=== PATIENT | female | born 1995 | race Caucasian/White ===

== ENCOUNTER 2018-10-21 18:06 | Emergency (ER) | payer BC ==
[2018-10-21] MEDS ORDERED: Acetaminophen/oxyCODONE 325-5 MG Tab PO ONE (18:07)
[2018-10-21] MEDS ORDERED: Ketorolac 60 MG/2 ML SDV IM ONE (18:42)
--- NOTE | 2018-10-21 18:48 | EDM.PDOC ---
ED HPI GENERAL MEDICAL PROBLEM - General Chief Complaint: Back Pain or Injury Stated Complaint: HURT BACK Time Seen by Provider: 10/21/18 18:43 Source of Information: Reports: Patient History Limitations: Reports: No Limitations - History of Present Illness INITIAL COMMENTS - FREE TEXT/NARRATIVE: Patient was lifting heavy tote (@50 lb), then fell backwards to the ground. Complains of low back pain that radiates to right hip and upper leg. Denies numbness, tingling or weakness. She did not take any pain medication prior to coming to the ED. 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 Lower back pain radiating down R leg Pain Score (Numeric/FACES): 10 - Related Data Allergies Allergy/AdvReac Type Severity Reaction Status Date / Time cefuroxime Allergy Hives Verified 10/21/18 18:21 cephalexin [Cephalexin] Allergy Hives Verified 10/21/18 18:21 Home Meds: Home Meds Ibuprofen [Motrin] 600 mg PO Q6H PRN #60 tablet 08/02/15 [Rx] DULoxetine HCl [Duloxetine HCl] 20 mg DAILY 10/21/18 [History] Zolpidem Tartrate 5 mg BEDTIME PRN 10/21/18 [History] sulfaSALAzine [sulfaSALAzine DR] 500 mg BID 10/21/18 [History] traMADol [Ultram] 50 mg PO TID 10/21/18 [History] Past Medical History Other HEENT History: wisdom teeth extraction Respiratory History: Reports: Asthma Gastrointestinal History: Reports: Cholelithiasis, Other (See Below) Other Gastrointestinal History: Pt had gallbladder removed earlier this Genitourinary History: Reports: Renal Calculus 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 ED EXAM,LOWER BACK PAIN/INJURY - Physical Exam Exam: See Below Exam Limited By: No Limitations General Appearance: Alert, WD/WN, No Apparent Distress Respiratory/Chest: No Respiratory Distress GI/Abdominal: Soft, Non-Tender, No Distention Back Exam: Vertebral Tenderness (lumbar) Extremities: Other (right hip tenderness) Neurological: Alert, Normal Mood/Affect, No Motor/Sensory Deficits DTR - Lower Extremities: 2+: Knee (R), Knee (L) Psychiatric: Normal Affect, Normal Mood Skin Exam: Warm, Dry Course - Vital Signs Last Recorded V/S: Last Vital Signs Temp 36.7 C 10/21/18 18:17 Pulse 70 10/21/18 18:17 Resp 18 10/21/18 18:17 BP 121/74 10/21/18 18:17 Pulse Ox 100 10/21/18 18:17 - Orders/Labs/Meds Orders: Active Orders 24 hr Category Date Time Status Lumbar Spine wo Cont [CT] Stat Exams 10/21/18 18:42 Taken Pelvis wo Cont [CT] Stat Exams 10/21/18 18:42 Taken Meds: Medications Discontinued Medications Generic Name Dose Route Start Last Admin Trade Name Freq PRN Reason Stop Dose Admin Hydromorphone HCl 1 mg 10/21/18 19:28 10/21/18 19:38 Dilaudid IM 10/21/18 19:29 1 mg ONETIME ONE Administration Ketorolac Tromethamine 60 mg 10/21/18 18:42 10/21/18 19:00 Toradol IM 10/21/18 18:43 60 mg ONETIME ONE Administration Ondansetron HCl 4 mg 10/21/18 19:28 10/21/18 19:38 Zofran IM 10/21/18 19:29 4 mg ONETIME ONE Administration - Radiology Interpretation Free Text/Narrative:: CT Lumbar spine w/o: No acute process. CT Pelvis w/o: No acute process. - Re-Assessments/Exams Free Text/Narrative Re-Assessment/Exam: 10/21/18 19:52 Symptoms improved after Dilaudid 1mg IM (no improvement after Toradol 60mg IM). Departure - Departure Time of Disposition: 19:52 Disposition: Home, Self-Care 01 Condition: Good Clinical Impression: Sciatica Qualifiers: Laterality: right Qualified Code(s): M54.31 - Sciatica, right side - Discharge Information *PRESCRIPTION DRUG MONITORING PROGRAM REVIEWED*: Yes *COPY OF PRESCRIPTION DRUG MONITORING REPORT IN PATIENT DEBBY: No Instructions: Sciatica, Crutch Use, Adult, [id number] Referrals: PCP,None [Primary Care Provider] - Forms: ED Department Discharge, ED Return to Work/School Form Additional Instructions: Take Percocet as directed. You may take Ibuprofen with this, but do not take the Tramadol while taking Percocet. Follow up with your doctor in 2 days. Return to the ER if symptoms worsen. - My Orders Last 24 Hours: My Active Orders 10/21/18 18:42 Lumbar Spine wo Cont [CT] Stat Pelvis wo Cont [CT] Stat - Assessment/Plan Last 24 Hours: My Active Orders 10/21/18 18:42 Lumbar Spine wo Cont [CT] Stat Pelvis wo Cont [CT] Stat
[2018-10-21] MEDS ORDERED: Ondansetron 4 MG/2 ML SDV IM ONE (19:28)
[2018-10-21] MEDS ORDERED: HYDROmorphone 2 MG/ML SDV IM ONE (19:28)
[2018-10-21 20:20] VITALS: BP 121/83
== END 2018-10-21 20:14 | disposition home or self-care (01) ==
LOC: FB.ED 18:06
DX: M54.31 Sciatica, right side (principal); J45.909 Unspecified asthma, uncomplicated; F41.9 Anxiety disorder, unspecified; F32.9 Major depressive disorder, single episode, unspecified; Z88.1 Allergy status to other antibiotic agents; Z79.899 Other long term (current) drug therapy
CPT/HCPCS: 72131; 72192; 96372; 99284-25; A9270-GY; J1170; J1885; J2405

== ENCOUNTER 2019-02-04 18:41 | Emergency (ER) | payer BC, MEDICAID ==
[2019-02-04 18:55] VITALS: BP 122/76; PULSE 90
[2019-02-04] MEDS ORDERED: Sodium Chloride 0.9% 10 ML Syringe FLUSH PRN (19:07)
[2019-02-04] MEDS ORDERED: Ondansetron 4 MG/2 ML SDV IVPUSH ONE (19:07)
[2019-02-04] MEDS ORDERED: HYDROmorphone 2 MG/ML SDV IVPUSH ONE (19:07)
--- NOTE | 2019-02-04 19:12 | EDM.PDOC ---
ED HPI GENERAL MEDICAL PROBLEM - General Chief Complaint: Headache Stated Complaint: MAIGRAINE Time Seen by Provider: 02/04/19 19:08 Source of Information: Reports: Patient History Limitations: Reports: No Limitations - History of Present Illness INITIAL COMMENTS - FREE TEXT/NARRATIVE: Headache x 10 days. Characteristic of migraine she has had before. Severe. Associated with nausea/vomiting. She also endorses anxiety,back pain, chronic.Tried Imitrex with no relief.She was in the clinic today,got Ketoralac and Zofran IM with no relief. Migraine Pain Score (Numeric/FACES): 9 - Related Data Allergies Allergy/AdvReac Type Severity Reaction Status Date / Time cefuroxime Allergy Hives Verified 02/04/19 18:50 cephalexin [Cephalexin] Allergy Hives Verified 02/04/19 18:50 Home Meds: Home Meds Ibuprofen [Motrin] 600 mg PO Q6H PRN #60 tablet 08/02/15 [Rx] DULoxetine HCl [Duloxetine HCl] 20 mg PO DAILY 10/21/18 [History] Zolpidem Tartrate 5 mg PO BEDTIME PRN 10/21/18 [History] sulfaSALAzine [sulfaSALAzine DR] 500 mg PO BID 10/21/18 [History] traMADol [Ultram] 50 mg PO TID PRN 10/21/18 [History] Baclofen 5 mg PO TID 02/04/19 [History] Gabapentin [Neurontin] 100 mg PO TID 02/04/19 [History] Gabapentin [Neurontin] 600 mg PO TID 02/04/19 [History] Past Medical History Other HEENT History: wisdom teeth extraction Respiratory History: Reports: Asthma Gastrointestinal History: Reports: Cholelithiasis, Other (See Below) Other Gastrointestinal History: Pt had gallbladder removed earlier this Genitourinary History: Reports: 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: Musculoskeletal History: Reports: Back Pain, Chronic, RA Other Musculoskeletal History: hx bulging discs L4&5-S1 Neurological History: Reports: Migraines Psychiatric History: Reports: Anxiety, Depression - Infectious Disease History Infectious Disease History: Reports: Chicken Pox - Past Surgical History HEENT Surgical History: Reports: Oral Surgery Social & Family History - Family History Family Medical History: Noncontributory OBGYN: Reports: Psychiatric: Reports: Anxiety, Depression - Tobacco Use Smoking Status *Q: Current Every Day Smoker Years of Tobacco use: 8 Packs/Tins Daily: 0.4 - Caffeine Use Caffeine Use: Reports: Soda - Recreational Drug Use Recreational Drug Use: No ED ROS GENERAL - Review of Systems Review Of Systems: ROS reveals no pertinent complaints other than HPI. - Physical Exam Exam: See Below Exam Limited By: Other (In a dark room) General Appearance: Alert, Other ([id number]) Ears: Normal External Exam Nose: Normal Inspection Throat/Mouth: Normal Inspection Head Exam: Atraumatic, Normocephalic Psychiatric: Tearful Skin Exam: Warm Course - Vital Signs Last Recorded V/S: Last Vital Signs Temp 98.2 F 02/04/19 18:50 Pulse 90 02/04/19 18:50 Resp 18 02/04/19 18:50 BP 122/76 02/04/19 18:50 Pulse Ox 98 02/04/19 18:50 - Orders/Labs/Meds Orders: Active Orders 24 hr Category Date Time Status Peripheral IV Insertion Adult [OM.PC] Routine Oth 02/04/19 19:07 Ordered Meds: Medications Discontinued Medications Generic Name Dose Route Start Last Admin Trade Name Freq PRN Reason Stop Dose Admin Hydromorphone HCl 1 mg 02/04/19 19:07 02/04/19 19:20 Dilaudid IVPUSH 02/04/19 19:08 1 mg ONETIME ONE Administration Sodium Chloride 1,000 mls @ 999 mls/hr 02/04/19 19:15 02/04/19 19:10 Normal Saline IV 999 mls/hr ASDIRECTED KIMANI Administration Ondansetron HCl 8 mg 02/04/19 19:07 02/04/19 19:20 Zofran IVPUSH 02/04/19 19:08 8 mg ONETIME ONE Administration Sodium Chloride 10 ml 02/04/19 19:07 Saline Flush FLUSH ASDIRECTED PRN Keep Vein Open Departure - Departure Time of Disposition: 20:00 Disposition: Home, Self-Care 01 Condition: Good Clinical Impression: Migraine - Discharge Information Referrals: Diallo Paul MD [Primary Care Provider] - Forms: ED Department Discharge - Problem List & Annotations (1) Migraine SNOMED Code(s): 39960853 Code(s): G43.909 - MIGRAINE, UNSP, NOT INTRACTABLE, WITHOUT STATUS MIGRAINOSUS Status: Acute - Problem List Review Problem List Initiated/Reviewed/Updated: Yes - My Orders Last 24 Hours: My Active Orders 02/04/19 19:07 Peripheral IV Insertion Adult [OM.PC] Routine - Assessment/Plan Last 24 Hours: My Active Orders 02/04/19 19:07 Peripheral IV Insertion Adult [OM.PC] Routine Plan: 1 L NS,IV zofran and Dilaudid.
[2019-02-04] MEDS ORDERED: Sodium Chloride 0.9% 1,000 ML IV SCH (19:15)
== END 2019-02-04 20:15 | disposition home or self-care (01) ==
LOC: FB.ED 18:41
DX: G43.909 Migraine, unspecified, not intractable, without status migrainosus (principal); F41.9 Anxiety disorder, unspecified; F32.9 Major depressive disorder, single episode, unspecified; F17.210 Nicotine dependence, cigarettes, uncomplicated; Z79.899 Other long term (current) drug therapy; Z88.1 Allergy status to other antibiotic agents; Z88.8 Allergy status to other drugs, medicaments and biological substances
CPT/HCPCS: 96361; 96374; 96375; 99283; J1170; J2405; J7030

== ENCOUNTER 2019-05-08 11:01 | Emergency (ER) | payer OTHER, BC, MEDICAID ==
[2019-05-08 11:14] VITALS: BP 143/98; PULSE 87
[2019-05-08] MEDS ORDERED: HYDROmorphone 2 MG/ML SDV IVPUSH ONE (11:16)
--- NOTE | 2019-05-08 11:17 | EDM.PDOC ---
ED HPI GENERAL MEDICAL PROBLEM - General Stated Complaint: FALL Time Seen by Provider: 05/08/19 11:11 Source of Information: Reports: Patient History Limitations: Reports: No Limitations - History of Present Illness INITIAL COMMENTS - FREE TEXT/NARRATIVE: pt comes by EMS shortly after accidental fall off a chair while at work, c/o sever pain at right buttocks and right wrist , denies any other injuries or any other medical concerns. report Hx of chronic low back pain , she is on gabapentin and muscle relaxants . was given 100mcg fentanyl by EMS and still in tears c/o sever pain. lower back Pain Score (Numeric/FACES): 10 right wrist Pain Score (Numeric/FACES): 10 - Related Data Allergies Allergy/AdvReac Type Severity Reaction Status Date / Time cefuroxime Allergy Hives Verified 05/08/19 11:13 cephalexin [Cephalexin] Allergy Hives Verified 05/08/19 11:13 Home Meds: Home Meds Ibuprofen [Motrin] 600 mg PO Q6H PRN #60 tablet 08/02/15 [Rx] sulfaSALAzine [sulfaSALAzine DR] 1,000 mg PO BEDTIME 10/21/18 [History] traMADol [Ultram] 50 mg PO TID PRN 10/21/18 [History] Baclofen 5 mg PO TID 02/04/19 [History] Gabapentin [Neurontin] 900 mg PO TID 02/04/19 [History] Escitalopram Oxalate 10 mg PO DAILY 05/08/19 [History] Hydroxychloroquine Sulfate 200 mg PO BID 05/08/19 [History] sulfaSALAzine [sulfaSALAzine DR] 500 mg PO DAILY 05/08/19 [History] Past Medical History Other HEENT History: wisdom teeth extraction Respiratory History: Reports: Asthma Gastrointestinal History: Reports: Cholelithiasis, Other (See Below) Other Gastrointestinal History: Pt had gallbladder removed earlier this Genitourinary History: Reports: Renal Calculus 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: Musculoskeletal History: Reports: Back Pain, Chronic, RA Other Musculoskeletal History: hx bulging discs L4&5-S1 Neurological History: Reports: Migraines Psychiatric History: Reports: Anxiety, Depression - Infectious Disease History Infectious Disease History: Reports: Chicken Pox - Past Surgical History HEENT Surgical History: Reports: Oral Surgery Social & Family History - Family History Family Medical History: Noncontributory OBGYN: Reports: Psychiatric: Reports: Anxiety, Depression - Caffeine Use Caffeine Use: Reports: Soda ED ROS GENERAL - Review of Systems Review Of Systems: See Below Constitutional: Reports: No Symptoms Respiratory: Reports: No Symptoms Cardiovascular: Reports: No Symptoms GI/Abdominal: Reports: No Symptoms Musculoskeletal: Denies: Neck Pain, Shoulder Pain, Leg Pain Skin: Reports: No Symptoms ED EXAM, GENERAL - Physical Exam Exam: See Below Exam Limited By: No Limitations General Appearance: Alert, Moderate Distress, Severe Distress Eye Exam: Bilateral Eye: Normal Inspection, PERRL Nose: Normal Inspection Throat/Mouth: Normal Inspection, Normal Oropharynx Head: Atraumatic, Normocephalic Neck: Normal Inspection, Supple, Non-Tender, Full Range of Motion Respiratory/Chest: No Respiratory Distress, Lungs Clear, Normal Breath Sounds Cardiovascular: Normal Peripheral Pulses, Regular Rate, Rhythm, No Murmur GI/Abdominal: Normal Bowel Sounds, Soft, Non-Tender Back Exam: Normal Inspection, Full Range of Motion, Other (pt is tender over the right buttocks area, no bruising or soft tissue swelling, no tenderness over spine. also tender over the right wrist , swelling noted over the radial side. rest of RUE exam is nl. ). No: CVA Tenderness (L) Neurological: Alert, Oriented, CN II-XII Intact, Normal Gait, Normal Reflexes, No Motor/Sensory Deficits Course - Vital Signs Text/Narrative:: xray shows no acute findings / official report is still pending. pt was given dilaudid IM on arrival. supportive mng for contusion injury to buttocks and right wrist was recommended , pt was given 15 tablets on hydrocodone to use only for sever pain. Last Recorded V/S: Last Vital Signs Temp 36.7 C 05/08/19 11:10 Pulse 87 05/08/19 11:10 Resp 17 05/08/19 11:10 BP 143/98 H 05/08/19 11:10 Pulse Ox 100 05/08/19 11:10 - Orders/Labs/Meds Orders: Active Orders 24 hr Category Date Time Status Wrist Comp Min 3V Rt [CR] Stat Exams 05/08/19 11:17 Taken Meds: Medications Discontinued Medications Generic Name Dose Route Start Last Admin Trade Name Freq PRN Reason Stop Dose Admin Hydromorphone HCl 1 mg 05/08/19 11:16 05/08/19 11:21 Dilaudid IVPUSH 05/08/19 11:17 1 mg ONETIME ONE Administration Departure - Departure Time of Disposition: 11:50 Disposition: Home, Self-Care 01 Clinical Impression: Contusion of wrist, right - Discharge Information Referrals: Diallo Paul MD [Primary Care Provider] - Sepsis Event Note - Focused Exam Vital Signs: Vital Signs Temp Pulse Resp BP Pulse Ox 05/08/19 11:10 36.7 C 87 17 143/98 H 100 Date Exam was Performed: 05/08/19 Time Exam was Performed: 11:48 - My Orders Last 24 Hours: My Active Orders 05/08/19 11:17 Wrist Comp Min 3V Rt [CR] Stat - Assessment/Plan Last 24 Hours: My Active Orders 05/08/19 11:17 Wrist Comp Min 3V Rt [CR] Stat
[2019-05-08] MEDS ORDERED: Ketorolac 30 MG/ML SDV IVPUSH ONE (12:15)
--- NOTE | 2019-05-10 14:38 | CR ---
INDICATION: Wrist pain. RIGHT WRIST: Three views of the right wrist revealed no evidence of a fracture , dislocation or other definite bone or joint abnormality. If an occult fracture site is suspected clinically, reexamination in 10-14 days may be helpful. MTDD
== END 2019-05-08 12:43 | disposition home or self-care (01) ==
LOC: FB.ED 11:01
DX: S60.211A Contusion of right wrist, initial encounter (principal); J45.909 Unspecified asthma, uncomplicated; F41.9 Anxiety disorder, unspecified; F32.9 Major depressive disorder, single episode, unspecified; Z79.899 Other long term (current) drug therapy; Z88.1 Allergy status to other antibiotic agents; W07.XXXA Fall from chair, initial encounter; Y99.0 Civilian activity done for income or pay
CPT/HCPCS: 73110-RT; 96374; 96375; 99283-25; J1170; J1885

== ENCOUNTER 2019-08-23 14:02 | Emergency (ER) | payer BC, MEDICAID ==
[2019-08-23] MEDS ORDERED: Potassium Chloride 10 MEQ Tab.ER PO ONE (14:03)
[2019-08-23] MEDS ORDERED: Ondansetron 4 MG Tab.DIS PO ONE (14:03)
--- NOTE | 2019-08-23 14:34 | EDM.PDOC ---
ED HPI GENERAL MEDICAL PROBLEM - General Chief Complaint: Gastrointestinal Problem Stated Complaint: VERY DEHYDRATED Time Seen by Provider: 08/23/19 14:20 Source of Information: Reports: Patient, Old Records History Limitations: Reports: No Limitations - History of Present Illness INITIAL COMMENTS - FREE TEXT/NARRATIVE: Laura comes into [facility] ED with a 13 hr hx of nausea, vomiting, and diarrhea. She has been ill for 5 days with Infl. B, and did take most of the Tamiflu 75 mg tabs until recently. Emesis is caldera in color, and diarrhea is watery without blood or mucous. She feels weak, tired, afebrile, and anorectic. She is on DepoProvera IM for control. - Related Data Allergies Allergy/AdvReac Type Severity Reaction Status Date / Time cefuroxime Allergy Hives Verified 08/23/19 14:21 cephalexin [Cephalexin] Allergy Hives Verified 08/23/19 14:21 Home Meds: Home Meds Ibuprofen [Motrin] 600 mg PO Q6H PRN #60 tablet 08/02/15 [Rx] sulfaSALAzine [sulfaSALAzine DR] 1,000 mg PO BEDTIME 10/21/18 [History] traMADol [Ultram] 50 mg PO TID PRN 10/21/18 [History] Baclofen 5 mg PO TID 02/04/19 [History] Gabapentin [Neurontin] 900 mg PO TID 02/04/19 [History] Escitalopram Oxalate 10 mg PO DAILY 05/08/19 [History] Hydrocodone/Acetaminophen [Hydrocodon-Acetaminophen 5-325] 1 - 2 each PO Q6H PRN #15 tablet 05/08/19 [Rx] Hydroxychloroquine Sulfate 200 mg PO BID 05/08/19 [History] sulfaSALAzine [sulfaSALAzine DR] 500 mg PO DAILY 05/08/19 [History] Past Medical History Other HEENT History: wisdom teeth extraction Respiratory History: Reports: Asthma Gastrointestinal History: Reports: Cholelithiasis, Other (See Below) Other Gastrointestinal History: Pt had gallbladder removed earlier this Genitourinary History: Reports: 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: Musculoskeletal History: Reports: Back Pain, Chronic, RA Other Musculoskeletal History: hx bulging discs L4&5-S1 Neurological History: Reports: Migraines Psychiatric History: Reports: Anxiety, Depression - Infectious Disease History Infectious Disease History: Reports: Chicken Pox - Past Surgical History HEENT Surgical History: Reports: Oral Surgery Social & Family History - Family History Family Medical History: Noncontributory OBGYN: Reports: Psychiatric: Reports: Anxiety, Depression - Caffeine Use Caffeine Use: Reports: Soda ED ROS GENERAL - Review of Systems Review Of Systems: Comprehensive ROS is negative, except as noted in HPI. ED EXAM, GI/ABD - Physical Exam Exam: See Below Exam Limited By: No Limitations General Appearance: Alert, WD/WN, Mild Distress Eyes: Bilateral: Normal Appearance, EOMI Ears: Normal External Exam Nose: Normal Inspection Throat/Mouth: Normal Inspection, Normal Lips, Normal Oropharynx, Normal Voice, No Airway Compromise Head: Normocephalic Neck: Normal Inspection, Supple, Non-Tender Respiratory/Chest: No Respiratory Distress, Lungs Clear, Normal Breath Sounds, No Accessory Muscle Use, Chest Non-Tender Cardiovascular: Regular Rate, Rhythm, No Edema, No Gallop, No Murmur GI/Abdominal Exam: Normal Bowel Sounds, Soft, Non-Tender, No Organomegaly, No Distention, No Mass (Female) Exam: Deferred Rectal (Female) Exam: Deferred Back Exam: Normal Inspection, Full Range of Motion Extremities: Normal Inspection Neurological: Alert, Oriented, CN II-XII Intact, Normal Cognition, No Motor/ Sensory Deficits Psychiatric: Normal Affect, Normal Mood Skin Exam: Warm, Dry, Intact, Normal Color, No Rash Lymphatic: No Adenopathy Course - Vital Signs Text/Narrative:: Following assessment, I started an IV in the RUE, and administered 2L of D5LR, 20 meq KCl, Protonix 40 mg IV, Zofran 8 mg IV, and Phenergan 25 mg before discharge. There was 1 episode of emesis, but nausea had improved at time of discharge. Screening labs noted K 3.1 meq/l, other labs satisfactory for age. Last Recorded V/S: Last Vital Signs Temp 36.7 C 08/23/19 18:30 Pulse 109 H 08/23/19 18:30 Resp 17 08/23/19 18:30 BP 135/75 08/23/19 18:30 Pulse Ox 100 08/23/19 18:30 - Orders/Labs/Meds Orders: Active Orders 24 hr Category Date Time Status Peripheral IV Insertion Adult [OM.PC] Routine Oth 08/23/19 14:28 Ordered Labs: Laboratory Tests 08/23/19 08/23/19 08/23/19 Range/Units 14:35 14:35 16:30 WBC 3.6 L (4.5-12.0) X10-3/uL RBC 4.13 (3.23-5.20) x10(6)uL Hgb 12.9 (11.5-15.5) g/dL Hct 39.0 (30.0-51.3) % MCV 94.3 (80-96) fL MCH 31.3 (27.7-33.6) pg MCHC 33.2 (32.2-35.4) g/dL RDW 10.9 L (11.5-15.5) % Plt Count 224 (125-369) X10(3)uL MPV 7.8 (7.4-10.4) fL Neut % (Auto) 44.6 L (46-82) % Lymph % (Auto) 42.8 H (13-37) % [place] % (Auto) 10.3 (4-12) % Eos % (Auto) 1 (1.0-5.0) % Baso % (Auto) 1 (0-2) % Neut # (Auto) 1.6 (1.6-8.3) # Lymph # (Auto) 1.5 (0.6-5.0) # [place] # (Auto) 0.4 (0.0-1.3) # Eos # (Auto) 0.0 (0.0-0.8) # Baso # (Auto) 0.0 (0.0-0.2) # Sodium 143 (135-145) mmol/L Potassium 3.1 L (3.5-5.3) mmol/L Chloride 104 (100-110) mmol/L Carbon Dioxide 25 (21-32) mmol/L BUN 8 (7-18) mg/dL Creatinine 0.8 (0.55-1.02) mg/dL Est Cr Clr Drug Dosing 81.82 mL/min Estimated GFR (MDRD) > 60 (>60) BUN/Creatinine Ratio 10.0 (9-20) Glucose 84 (80-116) mg/dL Calcium 8.8 (8.6-10.2) mg/dL Urine Color Yellow (YELLOW) Urine Appearance Clear (CLEAR) Urine pH 7.0 H (5.0-6.5) Ur Specific [place] 1.000 L (1.010-1.025) Urine Protein Negative (NEGATIVE) mg/dL Urine Glucose (UA) >1000 H (NORMAL) mg/dL Urine Ketones Negative (NEGATIVE) mg/dL Urine Occult Blood Negative (NEGATIVE) Urine Nitrite Negative (NEGATIVE) Urine Bilirubin Negative (NEGATIVE) Urine Urobilinogen Normal (NEGATIVE) mg/dL Ur Leukocyte Esterase Negative (NEGATIVE) Urine RBC 0-5 (0-5) Urine WBC 0-5 (0-5) Ur Squamous Epith Cells Rare (NS,R,O) Urine Bacteria Few H (NS) Meds: Medications Discontinued Medications Generic Name Dose Route Start Last Admin Trade Name Freq PRN Reason Stop Dose Admin Dextrose/Lactated Ringer's 2,000 mls @ 999 mls/hr 08/23/19 14:30 08/23/19 15: 03 Dextrose 5%-Lactated Ringers IV 999 mls/hr ASDIRECTED KIMANI Administration Potassium Chloride 20 meq/ 100 mls @ 50 mls/hr 08/23/19 15:54 08/23/19 16:07 Premix IV 08/23/19 17:53 50 mls/hr ONETIME ONE Administration Promethazine HCl 25 mg/ Sodium 51 mls @ 200 mls/hr 08/23/19 16:27 08/23/19 16 :33 Chloride IV 08/23/19 16:42 200 mls/hr ONETIME ONE Administration Ondansetron HCl 8 mg 08/23/19 14:29 08/23/19 14:55 Zofran IVPUSH 08/23/19 14:30 8 mg ONETIME ONE Administration Pantoprazole Sodium 40 mg 08/23/19 16:21 08/23/19 16:36 Protonix Iv IVPUSH 08/23/19 16:22 40 mg ONETIME ONE Administration Promethazine HCl 50 mg 08/23/19 16:22 08/23/19 16:28 Phenergan IM 08/23/19 16:23 Not Given ONETIME ONE Sodium Chloride 10 ml 08/23/19 14:28 08/23/19 14:50 Saline Flush FLUSH 10 ml ASDIRECTED PRN Administration Keep Vein Open Departure - Departure Time of Disposition: 18:40 Disposition: Home, Self-Care 01 Condition: Fair Clinical Impression: Gastroenteritis - Discharge Information *PRESCRIPTION DRUG MONITORING PROGRAM REVIEWED*: Not Applicable *COPY OF PRESCRIPTION DRUG MONITORING REPORT IN PATIENT DEBBY: Not Applicable Instructions: Viral Gastroenteritis, Adult, [id number] Referrals: Diallo Paul MD [Primary Care Provider] - Forms: ED Department Discharge Additional Instructions: clear liquid diet and advanced as tolerated rest drink enough water please take zofran 4mg 1 tab odt every 8hours as needed and take potassium 10meq 1 tab three times a day until it is gone. if diarrhea persist, you may take Imodium over the counter medication follow up with your primary care as needed Sepsis Event Note - Focused Exam Vital Signs: Vital Signs Temp Pulse Resp BP Pulse Ox 08/23/19 18:30 36.7 C 109 H 17 135/75 100 08/23/19 14:06 36.8 C 79 18 104/83 100 Date Exam was Performed: 08/23/19 Time Exam was Performed: 19:01 - Problem List & Annotations (1) Gastroenteritis SNOMED Code(s): 57813807 Code(s): K52.9 - NONINFECTIVE GASTROENTERITIS AND COLITIS, UNSPECIFIED Status: Acute Annotation/Comment:: I dispensed Zofran 4 mg ODT, KCl 10 meq tab tid til gone, clear liquids, and rest. She may discontinue remaining Tamiflu tabs. She may pruchase OTC Imodium tabs for diarrhea prn. - Problem List Review Problem List Initiated/Reviewed/Updated: Yes - My Orders Last 24 Hours: My Active Orders 08/23/19 14:28 Peripheral IV Insertion Adult [OM.PC] Routine - Assessment/Plan Last 24 Hours: My Active Orders 08/23/19 14:28 Peripheral IV Insertion Adult [OM.PC] Routine Plan: Follow up if needed with PCP.
[2019-08-23] MEDS: Sodium Chloride 0.9% 10 ML Syringe FLUSH PRN (14:50)
[2019-08-23] MEDS: Ondansetron 4 MG/2 ML SDV IVPUSH ONE (14:55)
[2019-08-23] MEDS: Potassium Chloride 20 MEQ in Premix Bag 1 BAG IV ONE (16:07)
[2019-08-23] MEDS: Promethazine 25 MG/ML SDV IM ONE (16:28)
[2019-08-23] MEDS: Promethazine 25 MG in Sodium Chloride 0.9% 50 ML IV ONE (16:33)
[2019-08-23] MEDS: Pantoprazole 40 MG Vial IVPUSH ONE (16:36)
[2019-08-23 18:43] VITALS: BP 135/75; PULSE 109
== END 2019-08-23 18:36 | disposition home or self-care (01) ==
LOC: FB.ED 14:02
DX: K52.9 Noninfective gastroenteritis and colitis, unspecified (principal); J45.909 Unspecified asthma, uncomplicated; Z88.1 Allergy status to other antibiotic agents
CPT/HCPCS: 36415; 80048; 81001; 85025; 96361; 96365; 96366; 96375; 99284; A9270; C9113; J2405; J2550; J3480; J7050; J7121

== ENCOUNTER 2019-11-01 23:01 | Emergency (ER) | payer BC, MEDICAID ==
[2019-11-01] MEDS ORDERED: Ondansetron 4 MG Tab.DIS PO ONE ×2 (23:02→23:12)
[2019-11-01] MEDS ORDERED: Sodium Chloride 0.9% 10 ML Syringe FLUSH PRN (23:28)
[2019-11-01] MEDS ORDERED: Morphine 2 MG/ML Syringe IVPUSH ONE (23:29)
[2019-11-01] MEDS ORDERED: Ketorolac 30 MG/ML SDV IVPUSH ONE (23:29)
[2019-11-01 23:38] VITALS: BP 127/65; PULSE 104
[2019-11-01] MEDS ORDERED: Sodium Chloride 0.9% 1,000 ML IV SCH (23:45)
--- NOTE | 2019-11-02 01:02 | EDM.PDOC ---
ED HPI GENERAL MEDICAL PROBLEM - General Chief Complaint: Abdominal Pain Stated Complaint: STOMACH PAIN Time Seen by Provider: 11/01/19 23:05 Source of Information: Reports: Patient History Limitations: Reports: No Limitations - History of Present Illness INITIAL COMMENTS - FREE TEXT/NARRATIVE: Patient presented to the ED because of N/V/D x 1 day. She also c/o cramping abdominal pain. The pain is 10/10 over the epigastric area. There is no associated fever or chills or urinary symptoms. mid lower abdominal pain Pain Score (Numeric/FACES): 9 - Related Data Allergies Allergy/AdvReac Type Severity Reaction Status Date / Time cefuroxime Allergy Hives Verified 08/23/19 14:21 cephalexin [Cephalexin] Allergy Hives Verified 08/23/19 14:21 Home Meds: Home Meds Ibuprofen [Motrin] 600 mg PO Q6H PRN #60 tablet 08/02/15 [Rx] sulfaSALAzine [sulfaSALAzine DR] 1,000 mg PO BEDTIME 10/21/18 [History] traMADol [Ultram] 50 mg PO TID PRN 10/21/18 [History] Baclofen 20 mg PO TID 02/04/19 [History] Gabapentin [Neurontin] 900 mg PO TID 02/04/19 [History] Escitalopram Oxalate 20 mg PO DAILY 05/08/19 [History] Hydroxychloroquine Sulfate 200 mg PO BID 05/08/19 [History] sulfaSALAzine [sulfaSALAzine DR] 500 mg PO DAILY 05/08/19 [History] Albuterol Sulfate [Albuterol Sulfate Hfa] 2 puff IH Q4HR PRN 11/01/19 [History] ClonazePAM [KlonoPIN] 0.5 mg PO BEDTIME 11/01/19 [History] Ondansetron [Zofran ODT] 4 mg PO Q6H PRN 11/01/19 [History] SUMAtriptan 100 mg PO Q2H PRN 11/01/19 [History] Past Medical History Other HEENT History: wisdom teeth extraction Respiratory History: Reports: Asthma Gastrointestinal History: Reports: Cholelithiasis, Other (See Below) Other Gastrointestinal History: Pt had gallbladder removed earlier this Genitourinary History: Reports: Renal Calculus [employer] History: Reports: Musculoskeletal History: Reports: Back Pain, Chronic, RA Other Musculoskeletal History: hx bulging discs L4&5-S1 Neurological History: Reports: Migraines Psychiatric History: Reports: Anxiety, Depression Other Psychiatric History: controlled, see's PCP for this - Infectious Disease History Infectious Disease History: Reports: Chicken Pox - Past Surgical History HEENT Surgical History: Reports: Oral Surgery Social & Family History - Family History Family Medical History: Noncontributory OBGYN: Reports: Psychiatric: Reports: Anxiety, Depression - Tobacco Use Smoking Status *Q: Current Every Day Smoker Years of Tobacco use: 8 Packs/Tins Daily: 0.5 - Caffeine Use Caffeine Use: Reports: Soda Caffeine Use Comment: one per day - Recreational Drug Use Recreational Drug Use: No ED ROS GENERAL - Review of Systems Review Of Systems: See Below Constitutional: Reports: No Symptoms HEENT: Reports: No Symptoms Respiratory: Reports: No Symptoms Cardiovascular: Reports: No Symptoms Endocrine: Reports: No Symptoms GI/Abdominal: Reports: Abdominal Pain, Diarrhea, Nausea, Vomiting : Reports: No Symptoms Musculoskeletal: Reports: No Symptoms Skin: Reports: No Symptoms ED EXAM, GI/ABD - Physical Exam Exam: See Below Exam Limited By: No Limitations General Appearance: Alert, No Apparent Distress Ears: Normal External Exam, Normal Canal Nose: Normal Inspection, Normal Mucosa Throat/Mouth: Normal Inspection, Normal Lips Head: Atraumatic, Normocephalic, Facial Swelling Neck: Normal Inspection, Supple, Non-Tender Respiratory/Chest: No Respiratory Distress, Lungs Clear, Normal Breath Sounds Cardiovascular: Normal Peripheral Pulses, Regular Rate, Rhythm, No Edema, No Gallop, No JVD GI/Abdominal Exam: Normal Bowel Sounds, Soft, Other (epigastric tentenderness) Back Exam: Normal Inspection, Full Range of Motion Extremities: Normal Inspection, Normal Range of Motion, Non-Tender Course - Vital Signs Text/Narrative:: Labs reviewed with patient and verbalized full understanding NS 1 L bolus Zofran 4 mg IV x2 dose Toradol 30 mg IV x1 Last Recorded V/S: Last Vital Signs Temp 36.7 C 11/01/19 23:02 Pulse 104 H 11/01/19 23:02 Resp 17 11/01/19 23:02 BP 127/65 11/01/19 23:02 Pulse Ox 98 11/01/19 23:02 - Orders/Labs/Meds Orders: Active Orders 24 hr Category Date Time Status Saline Lock Insert [OM.PC] Routine Oth 11/01/19 23:28 Ordered Labs: Laboratory Tests 11/01/19 11/01/19 Range/Units 23:38 23:38 WBC 8.6 (4.5-12.0) X10-3/uL RBC 4.10 (3.23-5.20) x10(6)uL Hgb 12.3 (11.5-15.5) g/dL Hct 38.2 (30.0-51.3) % MCV 93.1 (80-96) fL MCH 30.1 (27.7-33.6) pg MCHC 32.3 (32.2-35.4) g/dL RDW 11.9 (11.5-15.5) % Plt Count 300 (125-369) X10(3)uL MPV 8.2 (7.4-10.4) fL Neut % (Auto) 81.9 (46-82) % Lymph % (Auto) 13.4 (13-37) % [place] % (Auto) 2.4 L (4-12) % Eos % (Auto) 0 L (1.0-5.0) % Baso % (Auto) 2 (0-2) % Neut # (Auto) 7.1 (1.6-8.3) # Lymph # (Auto) 1.1 (0.6-5.0) # [place] # (Auto) 0.2 (0.0-1.3) # Eos # (Auto) 0.0 (0.0-0.8) # Baso # (Auto) 0.2 (0.0-0.2) # Sodium 140 (135-145) mmol/L Potassium 4.1 D (3.5-5.3) mmol/L Chloride 105 (100-110) mmol/L Carbon Dioxide 22 (21-32) mmol/L BUN 8 (7-18) mg/dL Creatinine 0.9 (0.55-1.02) mg/dL Est Cr Clr Drug Dosing 72.73 mL/min Estimated GFR (MDRD) > 60 (>60) BUN/Creatinine Ratio 8.9 L (9-20) Glucose 90 (80-116) mg/dL Calcium 9.1 (8.6-10.2) mg/dL Meds: Medications Discontinued Medications Generic Name Dose Route Start Last Admin Trade Name Joana PRN Reason Stop Dose Admin Sodium Chloride 1,000 mls @ 999 mls/hr 11/01/19 23:45 11/02/19 00:04 Normal Saline IV 999 mls/hr ASDIRECTED KIMANI Administration Ketorolac Tromethamine 30 mg 11/01/19 23:29 11/02/19 00:04 Toradol IVPUSH 11/01/19 23:30 30 mg ONETIME ONE Administration Morphine Sulfate 2 mg 11/01/19 23:29 11/02/19 00:06 Morphine IVPUSH 11/01/19 23:30 2 mg ONETIME ONE Administration Ondansetron HCl 4 mg 11/01/19 23:12 11/01/19 23:22 Zofran Odt PO 11/01/19 23:13 4 mg ONETIME ONE Administration Ondansetron HCl 16 mg 11/01/19 23:02 Zofran Odt PO 11/01/19 23:03 .STK-MED ONE Sodium Chloride 10 ml 11/01/19 23:28 11/02/19 00:05 Saline Flush FLUSH 10 ml ASDIRECTED PRN Administration Keep Vein Open Departure - Departure Time of Disposition: 01:00 Disposition: Home, Self-Care 01 Condition: Good Clinical Impression: Gastroenteritis - Discharge Information Instructions: Viral Gastroenteritis, Adult, [id number] Referrals: Diallo Paul MD [Primary Care Provider] - Forms: ED Department Discharge Additional Instructions: please read discharge instructions on gastroenteritis frequent hand washing increase oral fluids zofran odt 4 mg every 4 hours as needed for nausea take ibuprofen 800 with tylenol 1000 mg every 4-6 hours as needed for pain follow up as needed - My Orders Last 24 Hours: My Active Orders 11/01/19 23:28 Saline Lock Insert [OM.PC] Routine - Assessment/Plan Last 24 Hours: My Active Orders 11/01/19 23:28 Saline Lock Insert [OM.PC] Routine Sepsis Event Note - Evaluation Sepsis Screening Result: No Definite Risk - Focused Exam Date Exam was Performed: 11/02/19 Time Exam was Performed: 14:19
== END 2019-11-02 01:13 | disposition home or self-care (01) ==
LOC: FB.ED 23:01
DX: K52.9 Noninfective gastroenteritis and colitis, unspecified (principal); J45.909 Unspecified asthma, uncomplicated; F41.9 Anxiety disorder, unspecified; F32.9 Major depressive disorder, single episode, unspecified; F17.210 Nicotine dependence, cigarettes, uncomplicated; Z88.1 Allergy status to other antibiotic agents; Z79.899 Other long term (current) drug therapy
CPT/HCPCS: 36415; 80048; 85025; 96361; 96374; 96375; 99284; A9270; J1885; J2270; J7030

== ENCOUNTER 2020-09-05 12:31 | Emergency (ER) | payer BC, MEDICAID ==
[2020-09-05] MEDS ORDERED: Sodium Chloride 0.9% 10 ML Syringe FLUSH PRN (12:41)
[2020-09-05] MEDS ORDERED: Ondansetron 4 MG/2 ML SDV IVPUSH STA (12:41)
[2020-09-05] MEDS: Sodium Chloride 0.9% 1,000 ML IV SCH ×2 (13:00→13:45)
--- NOTE | 2020-09-05 13:13 | EDM.PDOC ---
ED HPI GENERAL MEDICAL PROBLEM - General Stated Complaint: N/V/D Time Seen by Provider: 09/05/20 13:00 Source of Information: Reports: Patient History Limitations: Reports: No Limitations - History of Present Illness INITIAL COMMENTS - FREE TEXT/NARRATIVE: Patient presented to the ED because of N/V/D for 2 days and can't keep anything down. She also c/o fever, chills and tested for Covid x2 which were both negative. - Related Data Allergies Allergy/AdvReac Type Severity Reaction Status Date / Time cefuroxime Allergy Hives Verified 08/23/19 14:21 cephalexin [Cephalexin] Allergy Hives Verified 08/23/19 14:21 Home Meds: Home Meds Ibuprofen [Motrin] 600 mg PO Q6H PRN #60 tablet 08/02/15 [Rx] sulfaSALAzine [sulfaSALAzine DR] 1,000 mg PO BEDTIME 10/21/18 [History] traMADol [Ultram] 50 mg PO TID PRN 10/21/18 [History] Baclofen 20 mg PO TID 02/04/19 [History] Gabapentin [Neurontin] 900 mg PO TID 02/04/19 [History] Escitalopram Oxalate 20 mg PO DAILY 05/08/19 [History] Hydroxychloroquine Sulfate 200 mg PO BID 05/08/19 [History] sulfaSALAzine [sulfaSALAzine DR] 500 mg PO DAILY 05/08/19 [History] Albuterol Sulfate [Albuterol Sulfate Hfa] 2 puff IH Q4HR PRN 11/01/19 [History] ClonazePAM [KlonoPIN] 0.5 mg PO BEDTIME 11/01/19 [History] Ondansetron [Zofran ODT] 4 mg PO Q6H PRN 11/01/19 [History] SUMAtriptan 100 mg PO Q2H PRN 11/01/19 [History] Ondansetron [Zofran ODT] 4 mg PO Q4H PRN #5 tab.dis 09/05/20 [Rx] Past Medical History Other HEENT History: wisdom teeth extraction Respiratory History: Reports: Asthma Gastrointestinal History: Reports: Cholelithiasis, Other (See Below) Other Gastrointestinal History: Pt had gallbladder removed earlier this Genitourinary History: Reports: Renal Calculus [employer] History: Reports: Musculoskeletal History: Reports: Back Pain, Chronic, RA Other Musculoskeletal History: hx bulging discs L4&5-S1 Neurological History: Reports: Migraines Psychiatric History: Reports: Anxiety, Depression Other Psychiatric History: controlled, see's PCP for this - Infectious Disease History Infectious Disease History: Reports: Chicken Pox - Past Surgical History HEENT Surgical History: Reports: Oral Surgery Social & Family History - Family History Family Medical History: No Pertinent Family History OBGYN: Reports: Psychiatric: Reports: Anxiety, Depression - Caffeine Use Caffeine Use: Reports: Soda Caffeine Use Comment: one per day ED ROS GENERAL - Review of Systems Review Of Systems: See Below Constitutional: Reports: No Symptoms HEENT: Reports: No Symptoms Respiratory: Reports: No Symptoms Cardiovascular: Reports: No Symptoms Endocrine: Reports: No Symptoms GI/Abdominal: Reports: Diarrhea, Nausea, Vomiting Musculoskeletal: Reports: No Symptoms Skin: Reports: No Symptoms Neurological: Reports: No Symptoms Psychiatric: Reports: No Symptoms ED EXAM, GI/ABD - Physical Exam Exam: See Below Exam Limited By: No Limitations General Appearance: Alert, No Apparent Distress Ears: Normal External Exam, Normal Canal, Hearing Grossly Normal Nose: Normal Inspection, Normal Mucosa, No Blood Throat/Mouth: Normal Inspection, Normal Lips, Normal Teeth Head: Atraumatic, Normocephalic Neck: Normal Inspection, Supple, Non-Tender, Full Range of Motion Respiratory/Chest: No Respiratory Distress, Lungs Clear, Normal Breath Sounds, No Accessory Muscle Use, Chest Non-Tender Cardiovascular: Normal Peripheral Pulses, Regular Rate, Rhythm, No Edema, No Gallop, No JVD, No Murmur, No Rub GI/Abdominal Exam: Normal Bowel Sounds, Soft, Other (hyperactive BS, epigastric tenderness) Back Exam: Normal Inspection, Full Range of Motion Course - Vital Signs Text/Narrative:: Lab result was reviewed and discussed with patient Zofran 4 mg IV x1 NS 1 L bolus x 2 Last Recorded V/S: Last Vital Signs Temp 37.1 C 09/05/20 12:54 Pulse 72 09/05/20 12:54 Resp 16 09/05/20 12:54 BP 121/72 09/05/20 12:54 Pulse Ox 100 09/05/20 12:54 - Orders/Labs/Meds Orders: Active Orders 24 hr Category Date Time Status Sodium Chloride 0.9% [Normal Saline] 1,000 ml Med 09/05/20 12:45 Active IV ASDIRECTED Sodium Chloride 0.9% [Normal Saline] 1,000 ml Med 09/05/20 13:15 Active IV ASDIRECTED Sodium Chloride 0.9% [Saline Flush] Med 09/05/20 12:41 Active 10 ml FLUSH ASDIRECTED PRN Isolation [COMM] Routine Oth 09/05/20 13:00 Ordered Saline Lock Insert [OM.PC] Routine Oth 09/05/20 12:41 Ordered Medication Orders Sodium Chloride (Normal Saline) 1,000 mls @ 999 mls/hr IV ASDIRECTED KIMANI Last Admin: 09/05/20 13:45 Dose: 999 mls/hr Documented by: Infusion: 09/05/20 13:45 Dose: 999 mls/hr Documented by: Admin: 09/05/20 13:00 Dose: 999 mls/hr Documented by: BRIDGER Sodium Chloride (Normal Saline) 1,000 mls @ 999 mls/hr IV ASDIRECTED [facility] Sodium Chloride (Sodium Chloride 0.9% 10 Ml Syringe) 10 ml FLUSH ASDIRECTED PRN PRN Reason: Keep Vein Open Last Admin: 09/05/20 13:01 Dose: 10 ml Documented by: BRIDGER Labs: Laboratory Tests 09/05/20 09/05/20 Range/Units 13:00 13:00 WBC 7.0 (3.0-10.3) x10-3/uL RBC 3.97 (3.60-5.20) x10(6)uL Hgb 13.0 (11.4-15.5) g/dL Hct 37.9 (34.2-48.2) % MCV 95.5 (76.7-100.5) fL MCH 32.6 (23.9-33.9) pg MCHC 34.1 (31.9-34.8) g/dL RDW 12.5 (12.3-16.5) % Plt Count 274 (151-488) x10(3)uL MPV 8.7 (7.1-12.4) fL Neut % (Auto) 84.2 H (30.8-76.2) % Lymph % (Auto) 12.2 L (18.4-52.1) % [place] % (Auto) 3.5 L (4.4-15.7) % Eos % (Auto) 0.0 L (0.6-8.1) % Baso % (Auto) 0.1 L (0.2-1.5) % Neut # (Auto) 5.9 (1.5-6.3) x10-3/uL Lymph # (Auto) 0.8 L (1.0-4.4) x10-3/uL [place] # (Auto) 0.2 L (0.3-1.0) x10-3/uL Eos # (Auto) 0.0 (0.0-0.8) x10-3/uL Baso # (Auto) 0.0 (0.0-0.1) x10-3/uL Sodium 143 (135-145) mmol/L Potassium 3.9 (3.5-5.3) mmol/L Chloride 102 (100-110) mmol/L Carbon Dioxide 26 (21-32) mmol/L BUN 14 (7-18) mg/dL Creatinine 0.9 (0.55-1.02) mg/dL Est Cr Clr Drug Dosing TNP Estimated GFR (MDRD) > 60 (>60) BUN/Creatinine Ratio 15.6 (9-20) Glucose 79 L (80-116) mg/dL Calcium 9.0 (8.6-10.2) mg/dL Meds: Medications Generic Name Dose Route Start Last Admin Trade Name Freq PRN Reason Stop Dose Admin Sodium Chloride 1,000 mls @ 999 mls/hr 09/05/20 12:45 09/05/20 13:45 Normal Saline IV 999 mls/hr ASDIRECTED KIMANI Administration Sodium Chloride 1,000 mls @ 999 mls/hr 09/05/20 13:15 Normal Saline IV ASDIRECTED KIMANI Sodium Chloride 10 ml 09/05/20 12:41 09/05/20 13:01 Sodium Chloride 0.9% 10 Ml Syringe FLUSH 10 ml ASDIRECTED PRN Administration Keep Vein Open Discontinued Medications Generic Name Dose Route Start Last Admin Trade Name Freq PRN Reason Stop Dose Admin Ondansetron HCl 4 mg 09/05/20 12:41 09/05/20 13:08 Ondansetron 4 Mg/2 Ml Sdv IVPUSH 09/05/20 12:42 4 mg NOW STA Administration Departure - Departure Time of Disposition: 14:35 Disposition: Home, Self-Care 01 Condition: Good Clinical Impression: Gastroenteritis, Dehydration - Discharge Information Prescriptions: Ondansetron [Zofran ODT] 4 mg PO Q4H PRN #5 tab.dis PRN Reason: Nausea Instructions: Dehydration, Adult, [id number], Dehydration, Adult Referrals: Diallo Paul MD [Primary Care Provider] - Forms: ED Department Discharge Additional Instructions: Please read discharge instructions on gastroenteritis Frequent hand washing Increase oral fluids, drink at least 2 liters a day Zofran ODT 4 mg every 4 hours as needed for nausea Imodium(over the counter) 2 tablets every 6 hours as needed for diarrhea Follow up as needed Sepsis Event Note (ED) - Evaluation Sepsis Screening Result: No Definite Risk - Focused Exam Vital Signs: Vital Signs Temp Pulse Resp BP Pulse Ox 09/05/20 12:54 37.1 C 72 16 121/72 100 - My Orders Last 24 Hours: My Active Orders 09/05/20 12:41 Sodium Chloride 0.9% [Saline Flush] 10 ml FLUSH ASDIRECTED PRN Saline Lock Insert [OM.PC] Routine 09/05/20 12:45 Sodium Chloride 0.9% [Normal Saline] 1,000 ml IV ASDIRECTED 09/05/20 13:00 Isolation [COMM] Routine 09/05/20 13:15 Sodium Chloride 0.9% [Normal Saline] 1,000 ml IV ASDIRECTED - Assessment/Plan Last 24 Hours: My Active Orders 09/05/20 12:41 Sodium Chloride 0.9% [Saline Flush] 10 ml FLUSH ASDIRECTED PRN Saline Lock Insert [OM.PC] Routine 09/05/20 12:45 Sodium Chloride 0.9% [Normal Saline] 1,000 ml IV ASDIRECTED 09/05/20 13:00 Isolation [COMM] Routine 09/05/20 13:15 Sodium Chloride 0.9% [Normal Saline] 1,000 ml IV ASDIRECTED
[2020-09-05] MEDS ORDERED: Sodium Chloride 0.9% 1,000 ML IV SCH (13:15)
[2020-09-05 21:04] VITALS: BP 113/59; PULSE 81
== END 2020-09-05 15:50 | disposition home or self-care (01) ==
LOC: FB.ED 12:31
DX: E86.0 Dehydration (principal); K52.9 Noninfective gastroenteritis and colitis, unspecified; J45.909 Unspecified asthma, uncomplicated; Z88.1 Allergy status to other antibiotic agents; Z79.899 Other long term (current) drug therapy
CPT/HCPCS: 36415; 80048; 85025; 87804; 96374; 99283; 99284; J2405; J7030

== ENCOUNTER 2020-09-06 07:48 | Emergency (ER) | payer BC, MEDICAID ==
[2020-09-06] MEDS ORDERED: Sodium Chloride 0.9% 1,000 ML IV ONE ×3 (08:17→09:48)
[2020-09-06] MEDS ORDERED: Metoclopramide 10 MG/2 ML SDV IVPUSH ONE (08:17)
[2020-09-06] MEDS ORDERED: Ketorolac 30 MG/ML SDV IVPUSH ONE (08:17)
[2020-09-06] MEDS: Sodium Chloride 0.9% 10 ML Syringe FLUSH PRN ×2 (08:20→09:56)
--- NOTE | 2020-09-06 08:27 | EDM.PDOC ---
ED HPI GENERAL MEDICAL PROBLEM - General Chief Complaint: Abdominal Pain Stated Complaint: NEAUSEA/VOMITTING Time Seen by Provider: 09/06/20 08:05 Source of Information: Reports: Patient History Limitations: Reports: No Limitations - History of Present Illness INITIAL COMMENTS - FREE TEXT/NARRATIVE: c/o n/v x 3d nonspecific abd discomfort with V, no JUAREZ, no back pain says cannot keep anything down, not even sips of water had temp 100.4 x 2d in ED 1d ago from noon to 3p, WBC wnl, no temp here, given 2 liters IVF, send home on ondansterron ODT 4 mg SL, took all 5, says N/V worse after ondasetrone last episode of n/v 1y ago, says she had flu then, flu test neg 1d ago PSH: choly, no other abd surgery PMH: RA, other arthritis, immunosuppresed MD: sees rheum in [place] MPMP: Rx x 52 last year, Rx x 5 last month: clonazepam 1 mg #45 x 2, tramadol 50 mg #90, gabapentin 800 mg #90 gabapentin 100 mg #42 meds: for 3y on hydroxychloroquine 200 mg bid and sulfasalazine BID for her RA, other meds in past include NSAID, sumatriptan baclofin. On escitalopram SH: smokes cigs, no THC, no street drugs, occasional alc, no alc x 3d, works 30 hr/wk for [employer], off work since er since exposure to COVID, neg COVID x 4, including 2d ago, scheduled to return to work today. Lives with 5 yo dtr, dtr at school this AM Abdominal Pain Score (Numeric/FACES): 10 - Related Data Allergies Allergy/AdvReac Type Severity Reaction Status Date / Time cefuroxime Allergy Hives Verified 09/06/20 07:56 cephalexin [Cephalexin] Allergy Hives Verified 09/06/20 07:56 hydrocodone Allergy Hives Verified 09/06/20 07:57 Home Meds: Home Meds Ibuprofen [Motrin] 600 mg PO Q6H PRN #60 tablet 08/02/15 [Rx] sulfaSALAzine [sulfaSALAzine DR] 1,000 mg PO BEDTIME 10/21/18 [History] traMADol [Ultram] 50 mg PO TID PRN 10/21/18 [History] Gabapentin [Neurontin] 900 mg PO TID 02/04/19 [History] Escitalopram Oxalate 20 mg PO DAILY 05/08/19 [History] Hydroxychloroquine Sulfate 200 mg PO BID 05/08/19 [History] sulfaSALAzine [sulfaSALAzine DR] 500 mg PO DAILY 05/08/19 [History] Albuterol Sulfate [Albuterol Sulfate Hfa] 2 puff IH Q4HR PRN 11/01/19 [History] ClonazePAM [KlonoPIN] 0.5 mg PO BEDTIME 11/01/19 [History] SUMAtriptan 100 mg PO Q2H PRN 11/01/19 [History] Ondansetron [Zofran ODT] 4 mg PO Q4H PRN #5 tab.dis 09/05/20 [Rx] Omeprazole 20 mg PO DAILY #10 tablet.dr 09/06/20 [Rx] Prochlorperazine [Compazine] 10 mg PO Q6HR PRN 09/06/20 [History] Prochlorperazine [Compazine] 25 mg RC Q6H PRN #6 supp.rect 09/06/20 [Rx] Past Medical History Other HEENT History: wisdom teeth extraction Respiratory History: Reports: Asthma Gastrointestinal History: Reports: Cholelithiasis Other Gastrointestinal History: Pt had gallbladder removed earlier this Genitourinary History: Reports: Renal Calculus DIRECTOR OF REHABILITATIVE SERVICES History: Reports: Other DIRECTOR OF REHABILITATIVE SERVICES History: Musculoskeletal History: Reports: Arthritis, Back Pain, Chronic, Fibromyalgia, RA Other Musculoskeletal History: hx bulging discs L4&5-S1 Neurological History: Reports: Migraines Psychiatric History: Reports: Anxiety, Depression Other Psychiatric History: controlled, see's PCP for this - Infectious Disease History Infectious Disease History: Reports: Chicken Pox - Past Surgical History HEENT Surgical History: Reports: Oral Surgery GI Surgical History: Reports: Cholecystectomy Musculoskeletal Surgical History: Reports: None Social & Family History - Family History Family Medical History: No Pertinent Family History OBGYN: Reports: Psychiatric: Reports: Anxiety, Depression - Tobacco Use Tobacco Use Status *Q: Current Every Day Tobacco User Years of Tobacco use: 10 Packs/Tins Daily: 0.5 Used Tobacco, but Quit: No Second Hand Smoke Exposure: No - Caffeine Use Caffeine Use: Reports: None Caffeine Use Comment: one per day - Recreational Drug Use Recreational Drug Use: No ED ROS GENERAL - Review of Systems Review Of Systems: See Below Constitutional: Reports: No Symptoms, Fever HEENT: Reports: No Symptoms Respiratory: Reports: No Symptoms. Denies: Shortness of Breath, Cough Cardiovascular: Reports: No Symptoms Endocrine: Reports: No Symptoms GI/Abdominal: Reports: Abdominal Pain, Nausea, Vomiting. Denies: Constipation, Diarrhea : Reports: No Symptoms Musculoskeletal: Reports: No Symptoms Skin: Reports: No Symptoms Neurological: Reports: No Symptoms Psychiatric: Reports: No Symptoms Hematologic/Lymphatic: Reports: No Symptoms Immunologic: Reports: No Symptoms ED EXAM, GI/ABD - Physical Exam Exam: See Below Exam Limited By: No Limitations General Appearance: Alert, WD/WN, Other (alert, cooperative, moves easily, sitting crosslegged on bed, holding emesis bag, no n/v observed, normal speech, nontoxic) Throat/Mouth: Normal Voice, No Airway Compromise Head: Atraumatic, Normocephalic Neck: Normal Inspection, Supple, Non-Tender, Full Range of Motion. No: Lymphadenopathy (R), Lymphadenopathy (L) Respiratory/Chest: No Respiratory Distress, Lungs Clear, Normal Breath Sounds, No Accessory Muscle Use, Chest Non-Tender Cardiovascular: No Edema, No Gallop, No Murmur, No Rub, Other (HR 105 when I examined here (128 earlier)) GI/Abdominal Exam: Normal Bowel Sounds, Soft, Other (1+ suprapubic tender, mild nonspecific tender elsewhere, no inc'd epigastric or upper abd tender) Back Exam: Normal Inspection, Full Range of Motion. No: CVA Tenderness (R), CVA Tenderness (L) Extremities: Normal Range of Motion, Non-Tender, No Pedal Edema, Other (mild dec'd turgor UE x 3, o tenting) Neurological: Alert, Oriented, CN II-XII Intact, Normal Cognition, No Motor/Sensory Deficits Psychiatric: Normal Affect, Normal Mood Skin Exam: Warm, Dry, Intact, Normal Color, No Rash Lymphatic: No Adenopathy Course - Vital Signs Last Recorded V/S: Last Vital Signs Temp 36.8 C 09/06/20 10:34 Pulse 110 H 09/06/20 10:34 Resp 18 09/06/20 10:34 BP 124/65 09/06/20 10:34 Pulse Ox 100 09/06/20 10:34 - Orders/Labs/Meds Orders: Active Orders 24 hr Category Date Time Status CULTURE BLOOD [BC] Urgent Lab 09/06/20 08:40 Received CULTURE BLOOD [BC] Urgent Lab 09/06/20 08:45 Received Blood Culture x2 Reflex Set [OM.PC] Urgent Oth 09/06/20 08:18 Ordered Saline Lock Insert [OM.PC] Routine Oth 09/06/20 08:24 Ordered Labs: Laboratory Tests 09/06/20 09/06/20 09/06/20 Range/Units 08:40 08:40 08:40 WBC 6.4 (3.0-10.3) x10-3/uL RBC 3.71 (3.60-5.20) x10(6)uL Hgb 12.1 (11.4-15.5) g/dL Hct 35.0 (34.2-48.2) % MCV 94.3 (76.7-100.5) fL MCH 32.6 (23.9-33.9) pg MCHC 34.6 (31.9-34.8) g/dL RDW 12.3 (12.3-16.5) % Plt Count 253 (151-488) x10(3)uL MPV 9.0 (7.1-12.4) fL Neut % (Auto) 82.4 H (30.8-76.2) % Lymph % (Auto) 13.2 L (18.4-52.1) % [place] % (Auto) 4.1 L (4.4-15.7) % Eos % (Auto) 0.1 L (0.6-8.1) % Baso % (Auto) 0.2 (0.2-1.5) % Neut # (Auto) 5.3 (1.5-6.3) x10-3/uL Lymph # (Auto) 0.8 L (1.0-4.4) x10-3/uL [place] # (Auto) 0.3 (0.3-1.0) x10-3/uL Eos # (Auto) 0.0 (0.0-0.8) x10-3/uL Baso # (Auto) 0.0 (0.0-0.1) x10-3/uL ESR 4 (0-20) mm/hr Sodium 142 (135-145) mmol/L Potassium 3.4 L (3.5-5.3) mmol/L Chloride 103 (100-110) mmol/L Carbon Dioxide 22 (21-32) mmol/L BUN 14 (7-18) mg/dL Creatinine 0.7 (0.55-1.02) mg/dL Est Cr Clr Drug Dosing 97.17 mL/min Estimated GFR (MDRD) > 60 (>60) BUN/Creatinine Ratio 20.0 (9-20) Glucose 83 (80-116) mg/dL Lactic Acid (0.4-2.0) mmol/L Calcium 8.7 (8.6-10.2) mg/dL Magnesium (1.8-2.5) mg/dL Total Bilirubin 1.4 H (0.1-1.3) mg/dL AST 26 H D (5-25) IU/L ALT 38 H D (12-36) U/L Alkaline Phosphatase 58 (56-112) IU/L C-Reactive Protein < 0.2 L (0.5-0.9) mg/dL Total Protein 7.0 (6.0-8.0) g/dL Albumin 4.1 (3.5-5.2) g/dL Globulin 2.9 g/dL Albumin/Globulin Ratio 1.4 Lipase (73-393) U/L Urine Color (YELLOW) Urine Appearance (CLEAR) Urine pH (5.0-6.5) Ur Specific [place] (1.010-1.025) Urine Protein (NEGATIVE) mg/dL Urine Glucose (UA) (NORMAL) mg/dL Urine Ketones (NEGATIVE) mg/dL Urine Occult Blood (NEGATIVE) Urine Nitrite (NEGATIVE) Urine Bilirubin (NEGATIVE) Urine Urobilinogen (NEGATIVE) mg/dL Ur Leukocyte Esterase (NEGATIVE) Urine RBC (0-5) Urine WBC (0-5) Ur Squamous Epith Cells (NS,R,O) Urine Bacteria (NS) Urine Mucus (NS) Urine HCG, Qual (NEGATIVE) 09/06/20 09/06/20 09/06/20 Range/Units 08:40 08:40 08:40 WBC (3.0-10.3) x10-3/uL RBC (3.60-5.20) x10(6)uL Hgb (11.4-15.5) g/dL Hct (34.2-48.2) % MCV (76.7-100.5) fL MCH (23.9-33.9) pg MCHC (31.9-34.8) g/dL RDW (12.3-16.5) % Plt Count (151-488) x10(3)uL MPV (7.1-12.4) fL Neut % (Auto) (30.8-76.2) % Lymph % (Auto) (18.4-52.1) % [place] % (Auto) (4.4-15.7) % Eos % (Auto) (0.6-8.1) % Baso % (Auto) (0.2-1.5) % Neut # (Auto) (1.5-6.3) x10-3/uL Lymph # (Auto) (1.0-4.4) x10-3/uL [place] # (Auto) (0.3-1.0) x10-3/uL Eos # (Auto) (0.0-0.8) x10-3/uL Baso # (Auto) (0.0-0.1) x10-3/uL ESR (0-20) mm/hr Sodium (135-145) mmol/L Potassium (3.5-5.3) mmol/L Chloride (100-110) mmol/L Carbon Dioxide (21-32) mmol/L BUN (7-18) mg/dL Creatinine (0.55-1.02) mg/dL Est Cr Clr Drug Dosing mL/min Estimated GFR (MDRD) (>60) BUN/Creatinine Ratio (9-20) Glucose (80-116) mg/dL Lactic Acid 1.2 (0.4-2.0) mmol/L Calcium (8.6-10.2) mg/dL Magnesium (1.8-2.5) mg/dL Total Bilirubin (0.1-1.3) mg/dL AST (5-25) IU/L ALT (12-36) U/L Alkaline Phosphatase (56-112) IU/L C-Reactive Protein (0.5-0.9) mg/dL Total Protein (6.0-8.0) g/dL Albumin (3.5-5.2) g/dL Globulin g/dL Albumin/Globulin Ratio Lipase 57 L (73-393) U/L Urine Color Yellow (YELLOW) Urine Appearance Slightly cloudy (CLEAR) Urine pH 5.0 (5.0-6.5) Ur Specific [place] 1.025 (1.010-1.025) Urine Protein Trace (NEGATIVE) mg/dL Urine Glucose (UA) Normal (NORMAL) mg/dL Urine Ketones 150 H (NEGATIVE) mg/dL Urine Occult Blood Negative (NEGATIVE) Urine Nitrite Negative (NEGATIVE) Urine Bilirubin Negative (NEGATIVE) Urine Urobilinogen 4 H (NEGATIVE) mg/dL Ur Leukocyte Esterase Small H (NEGATIVE) Urine RBC 0-5 (0-5) Urine WBC 0-5 (0-5) Ur Squamous Epith Cells Few H (NS,R,O) Urine Bacteria Few H (NS) Urine Mucus Few H (NS) Urine HCG, Qual (NEGATIVE) 09/06/20 09/06/20 Range/Units 08:40 08:40 WBC (3.0-10.3) x10-3/uL RBC (3.60-5.20) x10(6)uL Hgb (11.4-15.5) g/dL Hct (34.2-48.2) % MCV (76.7-100.5) fL MCH (23.9-33.9) pg MCHC (31.9-34.8) g/dL RDW (12.3-16.5) % Plt Count (151-488) x10(3)uL MPV (7.1-12.4) fL Neut % (Auto) (30.8-76.2) % Lymph % (Auto) (18.4-52.1) % [place] % (Auto) (4.4-15.7) % Eos % (Auto) (0.6-8.1) % Baso % (Auto) (0.2-1.5) % Neut # (Auto) (1.5-6.3) x10-3/uL Lymph # (Auto) (1.0-4.4) x10-3/uL [place] # (Auto) (0.3-1.0) x10-3/uL Eos # (Auto) (0.0-0.8) x10-3/uL Baso # (Auto) (0.0-0.1) x10-3/uL ESR (0-20) mm/hr Sodium (135-145) mmol/L Potassium (3.5-5.3) mmol/L Chloride (100-110) mmol/L Carbon Dioxide (21-32) mmol/L BUN (7-18) mg/dL Creatinine (0.55-1.02) mg/dL Est Cr Clr Drug Dosing mL/min Estimated GFR (MDRD) (>60) BUN/Creatinine Ratio (9-20) Glucose (80-116) mg/dL Lactic Acid (0.4-2.0) mmol/L Calcium (8.6-10.2) mg/dL Magnesium 1.7 L (1.8-2.5) mg/dL Total Bilirubin (0.1-1.3) mg/dL AST (5-25) IU/L ALT (12-36) U/L Alkaline Phosphatase (56-112) IU/L C-Reactive Protein (0.5-0.9) mg/dL Total Protein (6.0-8.0) g/dL Albumin (3.5-5.2) g/dL Globulin g/dL Albumin/Globulin Ratio Lipase (73-393) U/L Urine Color (YELLOW) Urine Appearance (CLEAR) Urine pH (5.0-6.5) Ur Specific [place] (1.010-1.025) Urine Protein (NEGATIVE) mg/dL Urine Glucose (UA) (NORMAL) mg/dL Urine Ketones (NEGATIVE) mg/dL Urine Occult Blood (NEGATIVE) Urine Nitrite (NEGATIVE) Urine Bilirubin (NEGATIVE) Urine Urobilinogen (NEGATIVE) mg/dL Ur Leukocyte Esterase (NEGATIVE) Urine RBC (0-5) Urine WBC (0-5) Ur Squamous Epith Cells (NS,R,O) Urine Bacteria (NS) Urine Mucus (NS) Urine HCG, Qual Negative (NEGATIVE) Meds: Medications Discontinued Medications Generic Name Dose Route Start Last Admin Trade Name Freq PRN Reason Stop Dose Admin Sodium Chloride 1,000 mls @ 999 mls/hr 09/06/20 08:17 09/06/20 08:26 Normal Saline IV 09/06/20 09:17 999 mls/hr .BOLUS ONE Administration Sodium Chloride 1,000 mls @ 999 mls/hr 09/06/20 09:34 09/06/20 10:06 Normal Saline IV 09/06/20 10:34 250 mls/hr .BOLUS ONE Infusion Sodium Chloride 1,000 mls @ 999 mls/hr 09/06/20 09:48 Normal Saline IV 09/06/20 10:48 .BOLUS ONE Magnesium Sulfate 2 gm in 50 mls @ 50 mls/hr 09/06/20 10:00 09/06/20 10:00 Magnesium Sulfate In Water 2 Gm/50 Ml IV 09/06/20 10:59 50 mls/hr ONETIME ONE Administration Ketorolac Tromethamine 30 mg 09/06/20 08:17 09/06/20 08:26 Ketorolac 30 Mg/Ml Sdv IVPUSH 09/06/20 08:18 30 mg ONETIME ONE Administration Lorazepam 1 mg 09/06/20 09:48 09/06/20 09:53 Lorazepam 2 Mg/Ml Sdv IVPUSH 09/06/20 09:49 1 mg ONETIME ONE Administration Metoclopramide HCl 10 mg 09/06/20 08:17 09/06/20 08:26 Metoclopramide 10 Mg/2 Ml Sdv IVPUSH 09/06/20 08:18 10 mg ONETIME ONE Administration Potassium Chloride 40 meq 09/06/20 09:49 09/06/20 09:53 Potassium Chloride 20 Meq Tab.Er PO 09/06/20 09:50 40 meq ONETIME ONE Administration Sodium Chloride 10 ml 09/06/20 08:24 09/06/20 09:56 Sodium Chloride 0.9% 10 Ml Syringe FLUSH 10 ml ASDIRECTED PRN Administration Keep Vein Open - Re-Assessments/Exams Free Text/Narrative Re-Assessment/Exam: 09/06/20 14:36 pt had to leave rather suddenly before all of Mg and 3rd liter NS could be given, 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 pt did agree to return if necessary labs with no evidence of infection, just the dehydration pelvic u/s from 1m ago with thickened bladder wall c/w cystitis, otherwise neg Departure - Departure Time of Disposition: 10:22 Disposition: Home, Self-Care 01 Condition: Good Clinical Impression: Nausea and vomiting, Moderate dehydration, Ketonuria, Hypokalemia, Hypomagnesemia - Discharge Information *PRESCRIPTION DRUG MONITORING PROGRAM REVIEWED*: Not Applicable *COPY OF PRESCRIPTION DRUG MONITORING REPORT IN PATIENT DEBBY: Not Applicable Prescriptions: Prochlorperazine [Compazine] 25 mg RC Q6H PRN #6 supp.rect PRN Reason: Nausea Omeprazole 20 mg PO DAILY #10 tablet.dr Instructions: Rehydration, Adult, Nausea and Vomiting, Adult Referrals: Diallo Paul MD [Primary Care Provider] - Forms: ED Department Discharge, ED Return to Work/School Form Additional Instructions: For nausea, use prochloperazone 25 mg suppository per rectum every 6 hours as needed. To decrease acid production, take omeprazole 20 mg 1 tab daily for 10 days. Increase fluids without caffeine or alcohol every 1-2 hours for the next 2 days. Get adequate rest. Return to work in 2 days. See your doctor in 5 days. Return to ED if you are feeling worse. Sepsis Event Note (ED) - Evaluation Sepsis Screening Result: Possible Severe Sepsis Risk - Focused Exam Vital Signs: Vital Signs Temp Pulse Resp BP Pulse Ox 09/06/20 10:34 36.8 C 110 H 18 124/65 100 09/06/20 08:01 36.7 C 128 H 18 84/47 L 99 - My Orders Last 24 Hours: My Active Orders 09/06/20 08:18 Blood Culture x2 Reflex Set [OM.PC] Urgent 09/06/20 08:24 Saline Lock Insert [OM.PC] Routine 09/06/20 08:40 CULTURE BLOOD [BC] Urgent 09/06/20 08:45 CULTURE BLOOD [BC] Urgent - Assessment/Plan Last 24 Hours: My Active Orders 09/06/20 08:18 Blood Culture x2 Reflex Set [OM.PC] Urgent 09/06/20 08:24 Saline Lock Insert [OM.PC] Routine 09/06/20 08:40 CULTURE BLOOD [BC] Urgent 09/06/20 08:45 CULTURE BLOOD [BC] Urgent
[2020-09-06] MEDS ORDERED: LORazepam 2 MG/ML SDV IVPUSH ONE (09:48)
[2020-09-06] MEDS ORDERED: Potassium Chloride 20 MEQ Tab.ER PO ONE (09:49)
[2020-09-06] MEDS ORDERED: Magnesium Sulfate/Water 2 GM/50 ML BAG IV ONE (10:00)
[2020-09-06 10:54] VITALS: BP 124/65; PULSE 110
== END 2020-09-06 10:40 | disposition home or self-care (01) ==
LOC: FB.ED 07:48
DX: E87.6 Hypokalemia (principal); E83.42 Hypomagnesemia; E86.0 Dehydration; R11.2 Nausea with vomiting, unspecified; R82.4 Acetonuria; J45.909 Unspecified asthma, uncomplicated; Z88.5 Allergy status to narcotic agent; Z88.1 Allergy status to other antibiotic agents; Z79.899 Other long term (current) drug therapy; Z72.0 Tobacco use
CPT/HCPCS: 36415; 80053; 81001; 81025; 83605; 83690; 83735; 85025; 85651; 86140; 87040; 96365; 96375; 99284; A9270; J1885; J2060; J2765; J3475; J7030

== ENCOUNTER 2021-03-06 19:47 | Emergency (ER) | payer BC, MEDICAID ==
[2021-03-06] MEDS ORDERED: Ondansetron 4 MG/2 ML SDV IVPUSH STA (20:03)
[2021-03-06] MEDS ORDERED: Sodium Chloride 0.9% 10 ML Syringe FLUSH PRN (20:03)
[2021-03-06] MEDS ORDERED: diphenhydrAMINE 50 MG/ML SDV IVPUSH ONE (20:03)
[2021-03-06] MEDS ORDERED: traMADol 50 MG Tab PO ONE (20:07)
[2021-03-06] MEDS ORDERED: Ketorolac 30 MG/ML SDV IVPUSH STA (20:07)
--- NOTE | 2021-03-06 20:14 | EDM.PDOC ---
ED HPI GENERAL MEDICAL PROBLEM - General Chief Complaint: Headache Stated Complaint: migraine Time Seen by Provider: 03/06/21 19:50 Source of Information: Reports: Patient History Limitations: Reports: No Limitations - History of Present Illness INITIAL COMMENTS - FREE TEXT/NARRATIVE: Patient presented to the ED because of headache over the occipital and frontal area,03/04 which started at 2 pm. There is nausea/vomiting, photophobia, phonophobia. She took her imitrex and OTC pain meds which didn't help. There is no fever, chills, cough/cold symptoms. Headache Pain Score (Numeric/FACES): 10 - Related Data Allergies Allergy/AdvReac Type Severity Reaction Status Date / Time cefuroxime Allergy Hives Verified 03/06/21 19:53 cephalexin [Cephalexin] Allergy Hives Verified 03/06/21 19:53 hydrocodone Allergy Hives Verified 03/06/21 19:53 Home Meds: Home Meds Ibuprofen [Motrin] 600 mg PO Q6H PRN #60 tablet 08/02/15 [Rx] sulfaSALAzine [sulfaSALAzine DR] 1,000 mg PO BEDTIME 10/21/18 [History] traMADol [Ultram] 50 mg PO TID PRN 10/21/18 [History] Gabapentin [Neurontin] 900 mg PO TID 02/04/19 [History] Escitalopram Oxalate 20 mg PO DAILY 05/08/19 [History] Hydroxychloroquine Sulfate 200 mg PO BID 05/08/19 [History] sulfaSALAzine [sulfaSALAzine DR] 500 mg PO DAILY 05/08/19 [History] Albuterol Sulfate [Albuterol Sulfate Hfa] 2 puff IH Q4HR PRN 11/01/19 [History] ClonazePAM [KlonoPIN] 0.5 mg PO BEDTIME 11/01/19 [History] SUMAtriptan 100 mg PO Q2H PRN 11/01/19 [History] Ondansetron [Zofran ODT] 4 mg PO Q4H PRN #5 tab.dis 09/05/20 [Rx] Omeprazole 20 mg PO DAILY #10 tablet.dr 09/06/20 [Rx] Prochlorperazine [Compazine] 10 mg PO Q6HR PRN 09/06/20 [History] Prochlorperazine [Compazine] 25 mg RC Q6H PRN #6 supp.rect 09/06/20 [Rx] Prochlorperazine [Compazine] 10 mg PO Q6H PRN #30 tab 03/06/21 [Rx] Past Medical History Other HEENT History: wisdom teeth extraction Respiratory History: Reports: Asthma Gastrointestinal History: Reports: Cholelithiasis Other Gastrointestinal History: Pt had gallbladder removed earlier this Genitourinary History: Reports: Renal Calculus FLOTATION TENDER History: Reports: Other FLOTATION TENDER History: Musculoskeletal History: Reports: Arthritis, Back Pain, Chronic, Fibromyalgia, RA Other Musculoskeletal History: hx bulging discs L4&5-S1 Neurological History: Reports: Migraines Psychiatric History: Reports: Anxiety, Depression Other Psychiatric History: controlled, see's PCP for this - Infectious Disease History Infectious Disease History: Reports: Chicken Pox - Past Surgical History HEENT Surgical History: Reports: Oral Surgery GI Surgical History: Reports: Cholecystectomy Musculoskeletal Surgical History: Reports: None Social & Family History - Family History Family Medical History: No Pertinent Family History OBGYN: Reports: Psychiatric: Reports: Anxiety, Depression - Caffeine Use Caffeine Use: Reports: None Caffeine Use Comment: one per day ED ROS GENERAL - Review of Systems Review Of Systems: See Below Constitutional: Reports: No Symptoms HEENT: Reports: No Symptoms Respiratory: Reports: No Symptoms Cardiovascular: Reports: No Symptoms Endocrine: Reports: No Symptoms GI/Abdominal: Reports: No Symptoms, Nausea, Vomiting : Reports: No Symptoms Musculoskeletal: Reports: No Symptoms Skin: Reports: No Symptoms Neurological: Reports: Headache - Physical Exam Exam: See Below Exam Limited By: No Limitations General Appearance: Alert, No Apparent Distress Eye Exam: Bilateral Eye: PERRL Ears: Normal External Exam, Normal Canal, Hearing Grossly Normal, Normal TMs Nose: Normal Inspection, Normal Mucosa, No Blood Throat/Mouth: Normal Inspection, Normal Lips, Normal Teeth, Normal Gums, Normal Oropharynx, Normal Voice Head Exam: Atraumatic, Normocephalic Neck: Normal Inspection, Supple, Non-Tender, Full Range of Motion Respiratory/Chest: No Respiratory Distress, Lungs Clear, Normal Breath Sounds, No Accessory Muscle Use, Chest Non-Tender Cardiovascular: Normal Peripheral Pulses, Regular Rate, Rhythm, No Edema, No Gallop, No JVD, No Murmur, No Rub GI/Abdominal: Normal Bowel Sounds, Soft, Non-Tender, No Organomegaly, No Distention, No Abnormal Bruit Neuro Exam (Abbreviated): Alert, Oriented, CN II-XII Intact, Normal Cognition, Normal Gait, Normal Reflexes, No Motor/Sensory Deficits Back Exam: Normal Inspection, Full Range of Motion Extremities: Normal Inspection, Normal Range of Motion, Non-Tender Psychiatric: Normal Affect Skin Exam: Warm Course - Vital Signs Text/Narrative:: Lab result was reviewed and discussed with patient Toradol 30 mg IV x1 Tramadol 100 mg PO x1 Benadryl 50 mg IV x1 NS 1 L bolus Zofran 4 mg IV x1 Morphine 2mg IV x1 Last Recorded V/S: Last Vital Signs Temp 36.7 C 03/06/21 19:47 Pulse 73 03/06/21 21:13 Resp 18 03/06/21 19:47 BP 124/66 03/06/21 21:13 Pulse Ox 97 03/06/21 19:47 - Orders/Labs/Meds Orders: Active Orders 24 hr Category Date Time Status Sodium Chloride 0.9% [Normal Saline] 1,000 ml Med 03/06/21 20:15 Active IV ASDIRECTED Sodium Chloride 0.9% [Saline Flush] Med 03/06/21 20:03 Active 10 ml FLUSH ASDIRECTED PRN Saline Lock Insert [OM.PC] Routine Oth 03/06/21 20:03 Ordered Medication Orders Sodium Chloride (Normal Saline) 1,000 mls @ 999 mls/hr IV ASDIRECTED [facility] Last Admin: 03/06/21 20:15 Dose: 999 mls/hr Documented by: MATIMAR Sodium Chloride (Sodium Chloride 0.9% 10 Ml Syringe) 10 ml FLUSH ASDIRECTED PRN PRN Reason: Keep Vein Open Labs: Laboratory Tests 03/06/21 03/06/21 Range/Units 20:11 20:11 WBC 6.6 (3.0-10.3) x10-3/uL RBC 3.89 (3.60-5.20) x10(6)uL Hgb 12.3 (11.4-15.5) g/dL Hct 35.5 (34.2-48.2) % MCV 91.4 (76.7-100.5) fL MCH 31.6 (23.9-33.9) pg MCHC 34.6 (31.9-34.8) g/dL RDW 11.5 L (12.3-16.5) % Plt Count 303 (151-488) x10(3)uL MPV 7.8 (7.1-12.4) fL Neut % (Auto) 47.9 (30.8-76.2) % Lymph % (Auto) 41.0 (18.4-52.1) % [place] % (Auto) 9.1 (4.4-15.7) % Eos % (Auto) 1.2 (0.6-8.1) % Baso % (Auto) 0.8 (0.2-1.5) % Neut # (Auto) 3.2 (1.5-6.3) x10-3/uL Lymph # (Auto) 2.7 (1.0-4.4) x10-3/uL [place] # (Auto) 0.6 (0.3-1.0) x10-3/uL Eos # (Auto) 0.1 (0.0-0.8) x10-3/uL Baso # (Auto) 0.1 (0.0-0.1) x10-3/uL Sodium 141 (135-145) mmol/L Potassium 3.7 (3.5-5.3) mmol/L Chloride 104 (100-110) mmol/L Carbon Dioxide 24 (21-32) mmol/L BUN 10 (7-18) mg/dL Creatinine 1.0 (0.55-1.02) mg/dL Est Cr Clr Drug Dosing TNP Estimated GFR (MDRD) > 60 (>60) BUN/Creatinine Ratio 10.0 (9-20) Glucose 85 (80-116) mg/dL Calcium 8.8 (8.6-10.2) mg/dL Meds: Medications Generic Name Dose Route Start Last Admin Trade Name Freq PRN Reason Stop Dose Admin Sodium Chloride 1,000 mls @ 999 mls/hr 03/06/21 20:15 03/06/21 20:15 Normal Saline IV 999 mls/hr ASDIRECTED KIMANI Administration Sodium Chloride 10 ml 03/06/21 20:03 Sodium Chloride 0.9% 10 Ml Syringe FLUSH ASDIRECTED PRN Keep Vein Open Discontinued Medications Generic Name Dose Route Start Last Admin Trade Name Freq PRN Reason Stop Dose Admin Diphenhydramine HCl 50 mg 03/06/21 20:03 03/06/21 20:22 Diphenhydramine 50 Mg/Ml Sdv IVPUSH 03/06/21 20:04 50 mg ONETIME ONE Administration Ketorolac Tromethamine 30 mg 03/06/21 20:07 03/06/21 20:22 Ketorolac 30 Mg/Ml Sdv IVPUSH 03/06/21 20:08 30 mg NOW STA Administration Morphine Sulfate 2 mg 03/06/21 21:21 03/06/21 21:27 Morphine 2 Mg/Ml Syringe IVPUSH 03/06/21 21:22 2 mg NOW STA Administration Ondansetron HCl 4 mg 03/06/21 20:03 03/06/21 20:20 Ondansetron 4 Mg/2 Ml Sdv IVPUSH 03/06/21 20:04 4 mg NOW STA Administration Tramadol HCl 100 mg 03/06/21 20:07 03/06/21 20:22 Tramadol 50 Mg Tab PO 03/06/21 20:08 100 mg ONETIME ONE Administration Departure - Departure Time of Disposition: 19:40 Disposition: Home, Self-Care 01 Condition: Good Clinical Impression: Migraine, Migraine - Discharge Information Prescriptions: Prochlorperazine [Compazine] 10 mg PO Q6H PRN #30 tab PRN Reason: Nausea Instructions: Migraine Headache, [id number] Referrals: Diallo Paul MD [Primary Care Provider] - Forms: ED Department Discharge Additional Instructions: Please read discharge instructions on migraine Compazine 10 mg every 6 hours as needed for nausea Ibuprofen 800,tylenol 1000, tramadol 100 mg every 8 hours as needed for headache. Take them all at the same time for better pain relief. Follow up as needed Sepsis Event Note (ED) - Evaluation Sepsis Screening Result: No Definite Risk - Focused Exam Vital Signs: Vital Signs Temp Pulse Resp BP Pulse Ox 03/06/21 21:13 73 124/66 03/06/21 19:47 36.7 C 104 H 18 148/87 H 97 - My Orders Last 24 Hours: My Active Orders 03/06/21 20:03 Sodium Chloride 0.9% [Saline Flush] 10 ml FLUSH ASDIRECTED PRN Saline Lock Insert [OM.PC] Routine 03/06/21 20:15 Sodium Chloride 0.9% [Normal Saline] 1,000 ml IV ASDIRECTED - Assessment/Plan Last 24 Hours: My Active Orders 03/06/21 20:03 Sodium Chloride 0.9% [Saline Flush] 10 ml FLUSH ASDIRECTED PRN Saline Lock Insert [OM.PC] Routine 03/06/21 20:15 Sodium Chloride 0.9% [Normal Saline] 1,000 ml IV ASDIRECTED
[2021-03-06] MEDS ORDERED: Sodium Chloride 0.9% 1,000 ML IV SCH (20:15)
[2021-03-06 21:13] VITALS: PULSE 73
[2021-03-06] MEDS ORDERED: Morphine 2 MG/ML SYRINGE IVPUSH STA (21:21)
[2021-03-06 22:03] VITALS: BP 116/70
== END 2021-03-06 21:55 | disposition home or self-care (01) ==
LOC: FB.ED 19:47
DX: G43.909 Migraine, unspecified, not intractable, without status migrainosus (principal); J45.909 Unspecified asthma, uncomplicated; Z88.1 Allergy status to other antibiotic agents; Z88.5 Allergy status to narcotic agent; Z79.899 Other long term (current) drug therapy
CPT/HCPCS: 36415; 80048; 85025; 96374; 96375; 99283; A9270; J1200; J1885; J2270; J2405; J7030

== ENCOUNTER 2022-05-14 16:08 | Emergency (ER) | payer BC, MEDICAID ==
[2022-05-14] MEDS ORDERED: Sodium Chloride 0.9% 10 ML Syringe FLUSH PRN (16:40)
[2022-05-14 17:03] LABS: ESTIMATED GFR 104 mL/min (>60)
[2022-05-14] MEDS ORDERED: Morphine 4 MG/ML VIAL IVPUSH ONE (17:05)
[2022-05-14] MEDS ORDERED: Sodium Chloride 0.9% 1,000 ML IV SCH (17:15)
[2022-05-14] MEDS ORDERED: Ketorolac 30 MG/ML SDV IVPUSH ONE (18:30)
[2022-05-14] MEDS ORDERED: Ketorolac 30 MG/ML SDV ONE (18:31)
[2022-05-14 19:02] VITALS: BP 124/77; PULSE 73
== END 2022-05-14 18:55 | disposition home or self-care (01) ==
LOC: FB.ED 16:08
DX: N20.0 Calculus of kidney (principal); N39.0 Urinary tract infection, site not specified; J45.909 Unspecified asthma, uncomplicated; I10 Essential (primary) hypertension; Z88.1 Allergy status to other antibiotic agents; Z88.5 Allergy status to narcotic agent; Z79.899 Other long term (current) drug therapy; Z90.49 Acquired absence of other specified parts of digestive tract
CPT/HCPCS: 36415; 74176; 80053; 81001; 81025; 82150; 83605; 83690; 85025; 86140; 96361; 96374; 96375; 99284; J1885; J2270; J7030

== ENCOUNTER 2023-12-22 17:41 | Emergency (ER) | payer BC, MEDICAID ==
[2023-12-22 18:03] VITALS: BP 116/77; PULSE 127
[2023-12-22 18:33] LABS: BASOPHILS ABSOLUTE AUTO 0.1 x10-3/uL (0.0-0.1); BASOPHILS PERCENT AUTO 0.6 % (0.2-1.5); EOSINOPHILS ABSOLUTE AUTO 0.1 x10-3/uL (0.0-0.8); EOSINOPHILS PERCENT AUTO 1.3 % (0.6-8.1); HEMATOCRIT 38.9 % (34.2-48.2); HEMOGLOBIN 13.5 g/dL (11.4-15.5); LYMPHOCYTES ABSOLUTE AUTO 2.8 x10-3/uL (1.0-4.4); LYMPHOCYTES PERCENT AUTO 30.4 % (18.4-52.1); MEAN CORPUSCULAR HGB CONC 34.7 g/dL (31.9-34.8); MEAN CORPUSCULAR VOLUME 92.2 fL (76.7-100.5); MEAN PLATELET VOLUME 7.7 fL (7.1-12.4); MONOCYTES ABSOLUTE AUTO 0.4 x10-3/uL (0.3-1.0); MONOCYTES PERCENT AUTO 4.9 % (4.4-15.7); NEUTROPHILS ABSOLUTE AUTO 5.7 x10-3/uL (1.5-6.3); NEUTROPHILS PERCENT AUTO 62.8 % (30.8-76.2); PLATELET COUNT,PLT 411 x10(3)uL (151-488); RED BLOOD CELL COUNT 4.22 x10(6)uL (3.60-5.20); RED CELL DISTRIBUTION WIDTH 12.2 % (12.3-16.5); WHITE BLOOD CELL COUNT,WBC 9.1 x10-3/uL (3.0-10.3)
[2023-12-22 18:35] LABS: BLOOD UREA NITROGEN,BUN 14 mg/dL (7-18); BUN/CREATININE RATIO 15.6 (9-20); CARBON DIOXIDE,CO2 27 mmol/L (21-32); CHLORIDE,CL 104 mmol/L (100-110); CREATININE 0.9 mg/dL (0.55-1.02); EST CRCL DRUG DOSING (CG) 72.95 mL/min; ESTIMATED GFR 89 mL/min (>60); GLUCOSE RANDOM 99 mg/dL (80-116); SODIUM,NA 140 mmol/L (135-145)
== END 2023-12-22 19:10 | disposition left against medical advice (07) ==
LOC: FB.ED 17:41
DX: F07.81 Postconcussional syndrome (principal); I10 Essential (primary) hypertension; J45.909 Unspecified asthma, uncomplicated; Z88.8 Allergy status to other drugs, medicaments and biological substances; Z90.49 Acquired absence of other specified parts of digestive tract
CPT/HCPCS: 36415; 70450; 80048; 85025; 99283; 99284